=== PATIENT | female | born 1945 | race American Indian/Alaskan Native ===

== ENCOUNTER 2022-04-17 14:21 | Inpatient (IN) | payer MEDICARE ==
--- NOTE | 2022-04-17 15:37 | Emergency Department Report ---
HPI - General Chief Complaint: Dyspnea/Respdistress Time Seen by Provider: 04/17/22 15:18 - HPI HPI: Room 23 The patient is a 76-year-old female present with a chief complaint of respiratory distress. The patient was brought in from [facility] after she was found today with increased work of breathing and decreased SPO2. Per halfway staff patient has a trach and had noisy respirations and is found to be satting between 88-90% trach collar with increased work of breathing. Nursing states the patient sat is 90 to 92% with supplemental O2 via trach collar. There is been no reported fever or cough. The patient was tested for COVID at the halfway today just prior to EMS arrival and was negative. The patient has a history of end-stage renal disease and per the halfway was last dialyzed yesterday ED Past Medical Hx - Past Medical History Previous Medical History?: Yes Hx Diabetes: Yes (type 2) Hx Renal Disease: Yes (ESRD, HD q. MWF Dr Marin) Hx Dementia: Yes Additional medical history: resp failure - Surgical History Additional Surgical History: Tracheostomy, right chest Vas-Cath - Family History Family history: no significant - Social History Smoking Status: Unknown if ever smoked Substance Use Type: None ED Review of Systems ROS: Stated complaint: CLOGGED TRACHEA Other details as noted in HPI Comment: Unobtainable due to pts medical conditions (Dementia) Physical Exam - Physical Exam Vital Signs: Vital Signs 04/17/22 15:12 Pulse Rate 110 H Respiratory 22 Rate Blood Pressure 150/70 [Left] O2 Sat by Pulse 92 Oximetry Physical Exam: GENERAL: The patient is well-developed well-nourished female lying on stretcher occasionally exhibiting noisy respirations from tracheostomy site. [] HEENT: Normocephalic. Atraumatic. Extraocular motions are intact. Patient has moist mucous membranes. NECK: Supple. Tracheostomy in place. Occasional noisy respirations CHEST/LUNGS: Transmitted breath sounds from trach HEART/CARDIOVASCULAR: Regular. There is no tachycardia. There is no gallop rub or murmur. ABDOMEN: Abdomen is soft, nontender. Patient has normal bowel sounds. There is no abdominal distention. SKIN: There is no rash. There is no edema. There is no diaphoresis. NEURO: The patient is is asleep but awakens to light touch MUSCULOSKELETAL: There is no evidence of acute injury. ED Course Vital Signs 04/17/22 15:12 Pulse Rate 110 H Respiratory 22 Rate Blood Pressure 150/70 [Left] O2 Sat by Pulse 92 Oximetry ED Medical Decision Making - Lab Data Result diagrams: 04/17/22 16:08 04/17/22 16:08 Laboratory Tests 04/17/22 04/17/22 04/17/22 16:08 16:08 16:08 WBC 10.1 RBC 2.60 L Hgb 8.6 L Hct 25.4 L MCV 98 H MCH 33 H MCHC 34 RDW 15.9 H Plt Count 205 Lymph % (Auto) 8.0 L [place] % (Auto) 7.3 Eos % (Auto) 0.1 Baso % (Auto) 0.1 Lymph # (Auto) 0.8 L [place] # (Auto) 0.7 Eos # (Auto) 0.0 Baso # (Auto) 0.0 Seg Neutrophils % 84.5 H Seg Neutrophils # 8.5 H Sodium 126 L Potassium 3.5 L Chloride 88.8 L Carbon Dioxide 27 Anion Gap 14 BUN 41 H Creatinine 2.2 H Estimated GFR 22 BUN/Creatinine Ratio 19 Glucose 160 H Lactic Acid 2.20 H* Calcium 10.4 H - Radiology Data Radiology results: report reviewed (Chest x-ray), image reviewed (Chest x-ray) interpreted by me: Chest x-ray-right lung haziness/opacities likely pneumonia. No pneumothorax. [facility] [address] [place] [address] XRay Report Signed Patient: HUSSAIN POLANOC MR#: [id number] 210 : 1945 Acct:[id number] Age/Sex: 76 / F ADM Date: 04/17/22 Loc: ED Attending Dr: Ordering Physician: HARITHA MARIE MD Date of Service: 04/17/22 Procedure(s): XR chest 1V ap Accession Number(s): [id number] cc: HARITHA MARIE MD Fluoro Time In Minutes: CHEST 1 VIEW 04/17/2022 3:04 PM INDICATION / CLINICAL INFORMATION: Noisy respirations, trach care. COMPARISON: None available. FINDINGS: The study is limited by portable technique and patient contraction. SUPPORT DEVICES: There is expected positioning of a tracheostomy tube and right internal jugular vein permcath. HEART / MEDIASTINUM: Normal size of the cardiac silhouette with severe aortic atherosclerosis. LUNGS / PLEURA: There are generalized right airspace opacities. Mild left basilar opacities are also noted. The left lung is otherwise clear. No significant pleural effusion. No pneumothorax. ADDITIONAL FINDINGS: No significant additional findings. IMPRESSION: Suspected right pneumonia with questionable left basilar atelectasis versus pneumonia. Signer Name: Rodrigo Stark MD Signed: 04/17/2022 4:21 PM Workstation Name: [id number] Transcribed By: MN Dictated By: Rodrigo Stark MD Electronically Authenticated By: Rodrigo Stark MD Signed Date/Time: 04/17/22 162 DD/ 1619 TD/TT: - Differential Diagnosis Bronchitis, tracheitis, trach care, pneumonia Critical care attestation.: If time is entered above; I have spent that time in minutes in the direct care of this critically ill patient, excluding procedure time. ED Disposition Clinical Impression: Pneumonia, Hyponatremia Disposition: ADMITTED INPATIENT Is pt being admited?: Yes Does the pt Need Aspirin: No Condition: Fair Instructions: Bacterial Pneumonia (ED) Time of Disposition: 17:19 (Care transferred to hospitalist (Dr. Proctor))
--- NOTE | 2022-04-17 16:25 | XRay Report ---
CHEST 1 VIEW 04/17/2022 3:04 PM INDICATION / CLINICAL INFORMATION: Noisy respirations, trach care. COMPARISON: None available. FINDINGS: The study is limited by portable technique and patient contraction. SUPPORT DEVICES: There is expected positioning of a tracheostomy tube and right internal jugular vein permcath. HEART / MEDIASTINUM: Normal size of the cardiac silhouette with severe aortic atherosclerosis. LUNGS / PLEURA: There are generalized right airspace opacities. Mild left basilar opacities are also noted. The left lung is otherwise clear. No significant pleural effusion. No pneumothorax. ADDITIONAL FINDINGS: No significant additional findings. IMPRESSION: Suspected right pneumonia with questionable left basilar atelectasis versus pneumonia. Signer Name: Rodrigo Stark MD Signed: 04/17/2022 4:21 PM Workstation Name: [id number]
[2022-04-17 16:43] LABS: Basophils % (Auto) 0.1 % (0.0-1.8); Eosinophils % (Auto) 0.1 % (0.0-4.3); Hematocrit 25.4 % (30.3-42.9); Hemoglobin 8.6 gm/dl (10.1-14.3); Lymphocytes # (Auto) 0.8 K/mm3 (1.2-5.4); Mean Corpuscular HGB Conc 34 % (30-34); Mean Corpuscular Volume 98 fl (79-97); Monocytes # (Auto) 0.7 K/mm3 (0.0-0.8); Monocytes % (Auto) 7.3 % (0.0-7.3); Platelet Count 205 K/mm3 (140-440); Red Cell Distribution Width 15.9 % (13.2-15.2)
[2022-04-17 16:53] LABS: Calcium 10.4 mg/dL (8.4-10.2)
[2022-04-17] MEDS ORDERED: VANCOMYCIN/NS 1 GM/250 ML 1 GM/250 ML BAG IV ONE (16:55)
[2022-04-17] MEDS ORDERED: CEFEPIME/NS 2 GM/100 ML 2 GM/100 ML BAG IV ONE (16:55)
[2022-04-17] MEDS ORDERED: ONDANSETRON 4 MG/2 ML INJ IV PRN ×2 (17:20→17:56)
[2022-04-17] MEDS ORDERED: ACETAMINOPHEN 325 MG TAB PO PRN ×2 (17:20→17:56)
[2022-04-17] MEDS ORDERED: MORPHINE 2 MG/1 ML INJ IV PRN (17:20)
--- NOTE | 2022-04-17 17:55 | History and Physical Report ---
History of Present Illness Date of examination: 04/17/22 Date of admission: 04/17/2022 Chief complaint: Increasing shortness of breath since a.m. History of present illness: The patient is a 76-year-old female present with a chief complaint of respiratory distress. The patient was brought in from [facility] after she was found today with increased work of breathing and decreased SPO2. Per care home staff patient has a trach and had noisy respirations and is found to be satting between 88-90% trach collar with increased work of breathing. Nursing states the patient sat is 90 to 92% with supplemental O2 via trach collar. There is been no reported fever or cough. The patient was tested for COVID at the care home today just prior to EMS arrival and was negative. The patient has a history of end-stage renal disease and per the care home was last dialyzed yesterday - Past Medical History Previous Medical History?: Yes Hx Diabetes: Yes (type 2) Hx Renal Disease: Yes (ESRD, HD q. MWF Dr Marin) Hx Dementia: Yes Additional medical history: resp failure - Surgical History Additional Surgical History: Tracheostomy, right chest Vas-Cath - Family History Family history: no significant - Social History Smoking Status: Unknown if ever smoked Substance Use Type: None Review of Systems ROS: Stated complaint: CLOGGED TRACHEA Other details as noted in HPI Comment: Unobtainable due to pts medical conditions (Dementia) Medications and Allergies Allergies Allergy/AdvReac Type Severity Reaction Status Date / Time No Known Allergies Allergy Verified 04/17/22 15:15 Active Meds: Active Medications Acetaminophen (Acetaminophen 325 Mg Tab) 650 mg PO Q4H PRN PRN Reason: Pain MILD(1-3)/Fever >100.5/CARRANZA Vancomycin HCl (Vancomycin/Ns 1 Gm/250 Ml) 1 gm in 250 mls @ 167.007 mls/hr IV ONCE ONE; Protocol Stop: 04/17/22 18:24 Morphine Sulfate (Morphine 2 Mg/1 Ml Inj) 2 mg IV Q4H PRN PRN Reason: Pain, Moderate (4-6) Ondansetron HCl (Ondansetron 4 Mg/2 Ml Inj) 4 mg IV Q8H PRN PRN Reason: Nausea And Vomiting Sodium Chloride (Sodium Chloride 0.9% 10 Ml Flush Syringe) 10 ml IV BID SHAYY Sodium Chloride (Sodium Chloride 0.9% 10 Ml Flush Syringe) 10 ml IV PRN PRN PRN Reason: LINE FLUSH Exam - Constitutional Vitals: Temp Pulse Resp BP Pulse Ox 98.9 F 65 35 H 150/68 96 04/17/22 15:58 04/17/22 15:58 04/17/22 15:58 04/17/22 15:58 04/17/22 17:11 General appearance: Present: mild distress, well-nourished - EENT Eyes: Present: PERRL ENT: hearing intact, clear oral mucosa - Neck Neck: Present: supple, normal ROM - Respiratory Respiratory effort: normal Respiratory: bilateral: diminished, rhonchi - Cardiovascular Heart rate: 98 Rhythm: regular Heart Sounds: Present: S1 & S2. Absent: rub, click - Extremities Extremities: pulses symmetrical, No edema Peripheral Pulses: within normal limits - Abdominal General gastrointestinal: Present: soft, non-tender, non-distended, normal bowel sounds Female genitourinary: Present: normal - Integumentary Integumentary: Present: clear, warm, dry - Musculoskeletal Musculoskeletal: gait normal, strength equal bilaterally - Psychiatric Psychiatric: appropriate mood/affect, intact judgment & insight - Neurologic Neurologic: CNII-XII intact, moves all extremities HEART Score - HEART Score Age: > 65 Risk factors: > 3 risk factors or hx of atherosclerotic disease Troponin: 1-3x normal limit - Critical Actions Critical Actions: 4-6 pts:12-16.6% risk of adverse cardiac event. Should be admitted Results - Labs CBC & Chem 7: 04/17/22 16:08 04/17/22 16:08 Labs: Laboratory Last Values WBC 10.1 K/mm3 (4.5-11.0) 04/17/22 16:08 RBC 2.60 M/mm3 (3.65-5.03) L 04/17/22 16:08 Hgb 8.6 gm/dl (10.1-14.3) L 04/17/22 16:08 Hct 25.4 % (30.3-42.9) L 04/17/22 16:08 MCV 98 fl (79-97) H 04/17/22 16:08 MCH 33 pg (28-32) H 04/17/22 16:08 MCHC 34 % (30-34) 04/17/22 16:08 RDW 15.9 % (13.2-15.2) H 04/17/22 16:08 Plt Count 205 K/mm3 (140-440) 04/17/22 16:08 Lymph % (Auto) 8.0 % (13.4-35.0) L 04/17/22 16:08 [place] % (Auto) 7.3 % (0.0-7.3) 04/17/22 16:08 Eos % (Auto) 0.1 % (0.0-4.3) 04/17/22 16:08 Baso % (Auto) 0.1 % (0.0-1.8) 04/17/22 16:08 Lymph # (Auto) 0.8 K/mm3 (1.2-5.4) L 04/17/22 16:08 [place] # (Auto) 0.7 K/mm3 (0.0-0.8) 04/17/22 16:08 Eos # (Auto) 0.0 K/mm3 (0.0-0.4) 04/17/22 16:08 Baso # (Auto) 0.0 K/mm3 (0.0-0.1) 04/17/22 16:08 Seg Neutrophils % 84.5 % (40.0-70.0) H 04/17/22 16:08 Seg Neutrophils # 8.5 K/mm3 (1.8-7.7) H 04/17/22 16:08 Sodium 126 mmol/L (137-145) L 04/17/22 16:08 Potassium 3.5 mmol/L (3.6-5.0) L 04/17/22 16:08 Chloride 88.8 mmol/L (98-107) L 04/17/22 16:08 Carbon Dioxide 27 mmol/L (22-30) 04/17/22 16:08 Anion Gap 14 mmol/L 04/17/22 16:08 BUN 41 mg/dL (7-17) H 04/17/22 16:08 Creatinine 2.2 mg/dL (0.6-1.2) H 04/17/22 16:08 Estimated GFR 22 ml/min 04/17/22 16:08 BUN/Creatinine Ratio 19 % 04/17/22 16:08 Glucose 160 mg/dL (65-100) H 04/17/22 16:08 Lactic Acid 2.20 mmol/L (0.7-2.0) H* 04/17/22 16:08 Calcium 10.4 mg/dL (8.4-10.2) H 04/17/22 16:08 Short CBC 04/17/22 Range/Units 16:08 WBC 10.1 (4.5-11.0) K/mm3 Hgb 8.6 L (10.1-14.3) gm/dl Hct 25.4 L (30.3-42.9) % Plt Count 205 (140-440) K/mm3 BMP 04/17/22 16:08 Sodium 126 L Potassium 3.5 L Chloride 88.8 L Carbon Dioxide 27 BUN 41 H Creatinine 2.2 H Glucose 160 H Calcium 10.4 H - Imaging and Cardiology EKG: report reviewed Chest x-ray: report reviewed Imaging and Cardiology: Chest x-ray Suspected right pneumonia with questionable left basilar atelectasis versus pneumonia Assessment and Plan Advance Directives: Yes (Full code) VTE prophylaxis?: Chemical Plan of care discussed with patient/family: Yes - Patient Problems (1) Acute respiratory failure with hypoxia Current Visit: Yes Status: Acute Plan to address problem: Patient was hypoxic at the time of admission Oxygen supplementation as necessary BiPAP as necessary Intubation if necessary (2) Right lower lobe pneumonia Current Visit: Yes Status: Acute Qualifiers: Pneumonia type: due to unspecified organism Qualified Code(s): J18.9 - Pneumonia, unspecified organism Plan to address problem: Cultures are pending Possible aspiration IV Zithromax and IV ceftriaxone (3) Hyponatremia Current Visit: Yes Status: Acute Plan to address problem: Dilutional (4) Volume overload Current Visit: Yes Status: Chronic Plan to address problem: Needs emergent hemodialysis Nephrology consulted (5) Hypertension Current Visit: Yes Status: Chronic Qualifiers: Hypertension type: primary hypertension Qualified Code(s): I10 - Essential (primary) hypertension Plan to address problem: Continue antihypertensives and adjust medications (6) End stage renal disease on dialysis Current Visit: Yes Status: Chronic Plan to address problem: Nephrology consulted (7) T2DM (type 2 diabetes mellitus) Current Visit: Yes Status: Chronic Qualifiers: Diabetes mellitus termite treater helper insulin use: unspecified termite treater helper insulin use status Plan to address problem: Coverage for now Check hemoglobin A1c (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 Patient is full code. Patient acknowledges understanding with care plan. +30 minutes.
[2022-04-17] MEDS ORDERED: oxyCODONE /ACETAMINOPHEN 5-325MG TAB PO PRN (17:56)
[2022-04-17] MEDS ORDERED: IPRATROPIUM/ALBUTEROL SULFATE 3 ML AMPUL.NEB IH PRN (18:01)
[2022-04-17] MEDS: cefTRIAXone/NS 1 GM/50 ML 1 GM/50 ML BAG IV SCH (19:38)
[2022-04-17] MEDS: AZITHROMYCIN/NS 500 MG/250 ML 500 MG/250 ML BAG IV SCH (20:06)
[2022-04-17] MEDS ORDERED: FAMOTIDINE 20 MG/2 ML INJ IV SCH (22:00)
[2022-04-18] MEDS: methylPREDNISolone Sod Succinate 125 MG/2 ML INJ IV SCH ×4 (02:09→21:57)
[2022-04-18] MEDS: IPRATROPIUM/ALBUTEROL SULFATE 3 ML AMPUL.NEB IH SCH ×5 (07:49→20:12)
[2022-04-18] MEDS: INSULIN LISPRO 100 UNIT/ML SUB-Q SCH ×4 (07:50→23:37)
--- NOTE | 2022-04-18 11:57 | Consultation ---
History of Present Illness - Reason for Consult Consult date: 04/18/22 end stage renal disease - History of Present Illness The patient is a 76 YO female known to our service with history notable for DM, HTN, Anemia, CVA, Resp failure s/p Tracheostomy and ESRD on HD(MWF) who presented from [place] with respiratory distress and decreased SPO2. Per alf staff patient has a trach and had noisy respirations and is found to be satting between 88-90% trach collar with increased work of breathing. Nursing states the patient sat is 90 to 92% with supplemental O2 via trach collar. There is been no reported fever or cough. The patient was tested for COVID at the alf today just prior to EMS arrival and was negative. Patient unable to provide any history and there was no family member at the bedside. Labs and imaging noted. Nephrology consulted for ESRD management. Past History Past Medical History: other (See HPI.) Medications and Allergies Allergies Allergy/AdvReac Type Severity Reaction Status Date / Time No Known Allergies Allergy Verified 04/17/22 15:15 Home Medications Medication Instructions Recorded Confirmed Last Taken Type Losartan [Cozaar] 50 mg PO QDAY #30 tablet 04/21/22 Unknown Rx carvediloL [Coreg] 6.25 mg FEEDTUBE BID #60 tablet 04/21/22 Unknown Rx Active Meds: Active Medications Acetaminophen (Acetaminophen 325 Mg Tab) 650 mg PO Q4H PRN PRN Reason: Pain MILD(1-3)/Fever >100.5/CARRANZA Albuterol/Ipratropium (Ipratropium/Albuterol Sulfate 3 Ml Ampul.Neb) 1 ampul IH QIDRT [facility] Last Admin: 04/18/22 08:39 Dose: 1 ampul Famotidine (Famotidine 10 Mg Tab) 10 mg PO BIDAC SHAYY Azithromycin (Zithromax/Ns) 500 mg in 250 mls @ 250 mls/hr IV Q24H [facility] Last Admin: 04/17/22 20:06 Dose: 250 mls/hr Ceftriaxone Sodium (Rocephin/Ns 1 Gm/50 Ml) 1 gm in 50 mls @ 100 mls/hr IV Q24H SHAYY; Protocol Last Admin: 04/17/22 19:38 Dose: 100 mls/hr Insulin Human Lispro (Insulin Lispro 100 Unit/Ml) 0 unit SUB-Q ACHS [facility]; Protocol Methylprednisolone Sodium Succinate (Methylprednisolone Sod Succinate 125 Mg/2 Ml Inj) 60 mg IV Q8HR [facility] Last Admin: 04/18/22 02:09 Dose: Not Given Morphine Sulfate (Morphine 2 Mg/1 Ml Inj) 2 mg IV Q4H PRN PRN Reason: Pain, Moderate (4-6) Ondansetron HCl (Ondansetron 4 Mg/2 Ml Inj) 4 mg IV Q8H PRN PRN Reason: Nausea And Vomiting Oxycodone/Acetaminophen (Oxycodone /Acetaminophen 5-325mg Tab) 1 tab PO Q6H PRN PRN Reason: Pain, Moderate (4-6) Sodium Chloride (Sodium Chloride 0.9% 10 Ml Flush Syringe) 10 ml IV BID [facility] Last Admin: 04/17/22 22:42 Dose: 10 ml Sodium Chloride (Sodium Chloride 0.9% 10 Ml Flush Syringe) 10 ml IV PRN PRN PRN Reason: LINE FLUSH Review of Systems ROS unobtainable: due to mental status Exam - Vital Signs Vital signs: Vital Signs Pulse Resp BP Pulse Ox 110 H 22 150/70 92 04/17/22 15:12 04/17/22 15:12 04/17/22 15:12 04/17/22 15:12 Results - Lab Results 04/19/22 05:37 04/20/22 06:40 Most recent lab results Calcium 10.4 mg/dL (8.4-10.2) H 04/17/22 16:08 Assessment and Plan 1. ESRD: Patient is on maintenance hemodialysis, MWF schedule. Hemodialysis: today. 2. FEN: Hyponatremia, HD today, monitor. UF with HD as tolerated. Monitor lytes and volume status. 3. Acute on chronic hypoxic respiratory failure, improved: Etiology: Right lower lobe pneumonia. Tracheostomy dependence. Baseline oxygen requirements: Room air (T-piece). Abx per primary. 4. Right lower lobe pneumonia: Chest x-ray findings. Abx. Covid negative. Monitor. 5. Hypertension: Continue to monitor. 6. Insulin dependent type II diabetes mellitus: SSI. 7. Moderate protein caloric malnutrition. 8. Normochromic anemia, POA: Chronic. Likely 2/2 ESRD. Epogen with HD. Subjective: Patient was seen and examined at the bedside. Examination: General appearance: well-developed, appears stated age, no distress, Trached on T-piece HEENT: atraumatic, no icterus Neck: trached Respiratory: ctab, diminished breath sounds Heart: S1S2, no murmur Abdomen: soft, bowel sounds heard, NT, PEG noted Integumentary: no obvious rash Neurologic: lethargic, non-verbal, not following any command Ext: no edema MSK: multiple contractures Hemodialysis access: R IJ tunnel catheter
[2022-04-18] MEDS ORDERED: EPOETIN ALFA-EPBX 20,000 UNIT/1 ML VIAL SUB-Q PRN (12:09)
[2022-04-18] MEDS: FAMOTIDINE 10 MG TAB PO SCH ×2 (12:09→17:59)
[2022-04-18] MEDS ORDERED: SODIUM CHLORIDE 0.9% 100 ML IV PRN ×2 (12:09→16:00)
[2022-04-18 14:17] LABS: Albumin 2.7 g/dL (3.9-5); BUN/Creatinine Ratio 15; Blood Urea Nitrogen 42 mg/dL (7-17); Calcium 9.5 mg/dL (8.4-10.2); Hemolysis Index 0
[2022-04-18 14:27] LABS: Alanine Aminotransferase < 5 units/L (7-56)
[2022-04-18 14:32] LABS: Hepatitis B Surface Antigen Non-Reactive (Negative); Hepatitis C Virus Antibody Non-Reactive (NonReactive)
[2022-04-18] MEDS ORDERED: EPOETIN ALFA-EPBX 10,000 UNIT/1 ML VIAL IV PRN (15:00)
[2022-04-18] MEDS: EPOETIN ALFA-EPBX 10,000 UNIT/1 ML VIAL SUB-Q PRN (15:47)
[2022-04-18] MEDS: cefTRIAXone/NS 1 GM/50 ML 1 GM/50 ML BAG IV SCH (18:00)
[2022-04-18] MEDS: AZITHROMYCIN/NS 500 MG/250 ML 500 MG/250 ML BAG IV SCH (18:00)
--- NOTE | 2022-04-18 19:39 | Progress Note ---
Assessment and Plan Assessment and plan: #Acute on chronic hypoxic respiratory failureimproved #Tracheostomy dependence - etiology: Right lower lobe pneumonia - baseline oxygen requirements: Room air (T-piece) - supplemental oxygen: 5 L nasal - Continue protocol: continue pulse oximetry, wean oxygen as tolerated, ordered incentive spirometry and educated patient on how to use it and its importance. Continue IV azithromycin 500 mg daily and IV Rocephin 1 g every 24 hours for total of 5 days (completes on 04/21/2022) - continue to monitor #Right lower lobe pneumonia secondary to gram-negative rods or atypical organisms Visualized on chest x-ray Continue IV azithromycin 500 mg daily and Rocephin 1 g every 24 hours Unremarkable coronavirus PCR. Continue to monitor #Hyponatremia Monitor with repeat BMP as the patient was initially volume overloaded and she is now underwent hemodialysis. #ESRD on dialysis #Volume overload -Access: Permacath in right upper chest -Outpatient schedule: Thursday -HD center: Unknown -Nephrology consulted; appreciate recs. -Renally dose medications and avoid nephrotoxic drugs. Renal diet. #Hypertension - home medications: Unknown - current medications: Currently normotensive - SBP goal <160 and DBP goal <90 while inpatient - continue to monitor #Insulin dependent type II diabetes mellitus - hemoglobin A1c: Unknown - home regimen: Unknown - current regimen: Moderate SSI - blood glucose goal 140-180 while inpatient - continue to monitor #Moderate protein caloric malnutrition Albumin 2.7 Holding on initiating dietary supplementation #Advanced care planning -Disease education conducted, care plan discussed, diagnoses discussed, prognosis discussed, and patient acknowledges understanding with care plan -Time: +30 min Disposition Plan: Continue medical management Total Time Spent with Patient (Minutes): 45 minutes History Interval history: No acute events overnight. Hospitalist Physical - Constitutional Vitals: Temp Pulse Resp BP Pulse Ox 98.0 F 69 18 168/71 98 04/18/22 16:30 04/18/22 16:30 04/18/22 16:30 04/18/22 16:30 04/18/22 18:00 General appearance: Present: no acute distress, well-nourished - EENT Eyes: Present: PERRL, EOM intact ENT: hearing intact, clear oral mucosa, dentition normal - Neck Neck: Present: supple, normal ROM, other (Trach collar in place) - Respiratory Respiratory effort: normal Respiratory: bilateral: diminished (On 5 L) - Cardiovascular Rhythm: regular Heart Sounds: Present: S1 & S2 - Extremities Extremities: no ischemia, pulses intact, pulses symmetrical, No edema, normal temperature, normal color Peripheral Pulses: within normal limits - Abdominal General gastrointestinal: soft, non-tender, non-distended, normal bowel sounds - Integumentary Integumentary: Present: clear, warm, dry - Psychiatric Psychiatric: appropriate mood/affect, memory intact, cooperative - Neurologic Neurologic: CNII-XII intact - Allied Health Allied health notes reviewed: nursing HEART Score - HEART Score Age: > 65 Risk factors: > 3 risk factors or hx of atherosclerotic disease Troponin: 1-3x normal limit - Critical Actions Critical Actions: 4-6 pts:12-16.6% risk of adverse cardiac event. Should be admitted Results - Labs CBC & Chem 7: 04/17/22 16:08 04/18/22 13:46 Labs: Laboratory Last Values WBC 10.1 K/mm3 (4.5-11.0) 04/17/22 16:08 RBC 2.60 M/mm3 (3.65-5.03) L 04/17/22 16:08 Hgb 8.6 gm/dl (10.1-14.3) L 04/17/22 16:08 Hct 25.4 % (30.3-42.9) L 04/17/22 16:08 MCV 98 fl (79-97) H 04/17/22 16:08 MCH 33 pg (28-32) H 04/17/22 16:08 MCHC 34 % (30-34) 04/17/22 16:08 RDW 15.9 % (13.2-15.2) H 04/17/22 16:08 Plt Count 205 K/mm3 (140-440) 04/17/22 16:08 Lymph % (Auto) 8.0 % (13.4-35.0) L 04/17/22 16:08 [place] % (Auto) 7.3 % (0.0-7.3) 04/17/22 16:08 Eos % (Auto) 0.1 % (0.0-4.3) 04/17/22 16:08 Baso % (Auto) 0.1 % (0.0-1.8) 04/17/22 16:08 Lymph # (Auto) 0.8 K/mm3 (1.2-5.4) L 04/17/22 16:08 [place] # (Auto) 0.7 K/mm3 (0.0-0.8) 04/17/22 16:08 Eos # (Auto) 0.0 K/mm3 (0.0-0.4) 04/17/22 16:08 Baso # (Auto) 0.0 K/mm3 (0.0-0.1) 04/17/22 16:08 Seg Neutrophils % 84.5 % (40.0-70.0) H 04/17/22 16:08 Seg Neutrophils # 8.5 K/mm3 (1.8-7.7) H 04/17/22 16:08 Sodium 131 mmol/L (137-145) L 04/18/22 13:46 Potassium 3.3 mmol/L (3.6-5.0) L 04/18/22 13:46 Chloride 93.3 mmol/L (98-107) L 04/18/22 13:46 Carbon Dioxide 28 mmol/L (22-30) 04/18/22 13:46 Anion Gap 13 mmol/L 04/18/22 13:46 BUN 42 mg/dL (7-17) H 04/18/22 13:46 Creatinine 2.8 mg/dL (0.6-1.2) H 04/18/22 13:46 Estimated GFR 20 ml/min 04/18/22 13:46 BUN/Creatinine Ratio 15 % 04/18/22 13:46 Glucose 88 mg/dL (65-100) 04/18/22 13:46 POC Glucose 91 mg/dL (70-105) 04/18/22 11:48 Lactic Acid 2.20 mmol/L (0.7-2.0) H* 04/17/22 16:08 Calcium 9.5 mg/dL (8.4-10.2) 04/18/22 13:46 Total Bilirubin 0.30 mg/dL (0.1-1.2) 04/18/22 13:46 AST 13 units/L (5-40) 04/18/22 13:46 ALT < 5 units/L (7-56) L 04/18/22 13:46 Alkaline Phosphatase 125 units/L (35-129) 04/18/22 13:46 Total Protein 5.5 g/dL (6.3-8.2) L 04/18/22 13:46 Albumin 2.7 g/dL (3.9-5) L 04/18/22 13:46 Albumin/Globulin Ratio 1.0 % 04/18/22 13:46 Coronavirus (PCR) Negative (Negative) 04/17/22 16:20 Hepatitis A IgM Ab Non-reactive (NonReactive) 04/18/22 13:46 Hep Bs Antigen Non-reactive (Negative) 04/18/22 13:46 Hep B Core IgM Ab Non-reactive (NonReactive) 04/18/22 13:46 Hepatitis C Antibody Non-reactive (NonReactive) 04/18/22 13:46 Microbiology: Microbiology 04/17/22 16:08 Peripheral/Venous Blood Culture - Preliminary Culture in Progress Bonilla/IV: Voiding Method Incontinent Active Medications - Current Medications Current Medications: Generic Name Dose Route Start Last Admin Trade Name Freq PRN Reason Stop Dose Admin Acetaminophen 650 mg 04/17/22 17:56 Acetaminophen 325 Mg Tab PO Q4H PRN Pain MILD(1-3)/Fever >100.5/CARRANZA Albuterol/Ipratropium 1 ampul 04/17/22 20:00 04/18/22 17:00 Ipratropium/Albuterol Sulfate 3 Ml Ampul.Neb IH Not Given QIDRT SHAYY Epoetin Dawrin-epbx 20,000 unit 04/18/22 15:00 04/18/22 15:47 Epoetin Darwin-Epbx 10,000 Unit/1 Ml Vial SUB-Q 20,000 unit RAFFAELE PRN Administration dialysis Famotidine 10 mg 04/18/22 08:30 04/18/22 17:59 Famotidine 10 Mg Tab PO 10 mg BIDAC SHAYY Administration Azithromycin 500 mg in 250 mls @ 250 mls/hr 04/17/22 19:00 04/18/22 18:00 Zithromax/Ns IV 250 mls/hr Q24H SHAYY Administration Ceftriaxone Sodium 1 gm in 50 mls @ 100 mls/hr 04/17/22 19:00 04/18/22 18:00 Rocephin/Ns 1 Gm/50 Ml IV 100 mls/hr Q24H SHAYY Administration Protocol Sodium Chloride 100 mls @ 999 mls/hr 04/18/22 16:00 Nacl 0.9% IV RAFFAELE PRN Hypotension Insulin Human Lispro 0 unit 04/18/22 07:30 04/18/22 16:55 Insulin Lispro 100 Unit/Ml SUB-Q Not Given ACHS [facility] Protocol Methylprednisolone Sodium Succinate 60 mg 04/17/22 22:00 04/18/22 17:59 Methylprednisolone Sod Succinate 125 Mg/2 Ml Inj IV 60 mg Q8HR SHAYY Administration Morphine Sulfate 2 mg 04/17/22 17:20 Morphine 2 Mg/1 Ml Inj IV Q4H PRN Pain, Moderate (4-6) Ondansetron HCl 4 mg 04/17/22 17:56 Ondansetron 4 Mg/2 Ml Inj IV Q8H PRN Nausea And Vomiting Oxycodone/Acetaminophen 1 tab 04/17/22 17:56 Oxycodone /Acetaminophen 5-325mg Tab PO Q6H PRN Pain, Moderate (4-6) Sodium Chloride 10 ml 04/17/22 22:00 04/18/22 12:12 Sodium Chloride 0.9% 10 Ml Flush Syringe IV 10 ml BID SHAYY Administration Sodium Chloride 10 ml 04/17/22 17:56 Sodium Chloride 0.9% 10 Ml Flush Syringe IV PRN PRN LINE FLUSH Nutrition/Malnutrition Assess - Dietary Evaluation Nutrition/Malnutrition Findings: Nutrition Notes Start: 04/18/22 12:09 Freq: Status: Active Protocol: Document 04/18/22 12:15 [facility] (Rec: 04/18/22 12:25 [facility] [id number]) Nutrition Notes Need for Assessment generated from: cogeneration operator,MST Initial or Follow up Assessment Current Diagnosis CKD (stage V CKD),Diabetes, Hypertension,Respiratory Failure Other Pertinent Diagnosis RLL pneu, volume overload, dementia Current Diet No diet ordered Labs/Tests Reviewed Pertinent Medications Solumedrol Height 5 ft 3 in Weight 59 kg [place] Body Weight (kg) 52.27 BMI 23.0 Weight Status Appropriate Subjective/Other Information RD consulted for TF. Pt also screened for malnutrition risk (unsure of recent wt changes) , chewing difficulty and hx of receiving NTR support. Pt is from a [place] and has a trach collar. Burn Absent Trauma Absent Difficulty In Swallowing Skin Integrity/Comment Sacral pressure ulcer #1 Nutrition Diagnosis Inadequate oral intake Etiology resp failure As Evidenced by Signs and Symptoms pt NPO Is patient on ventilator? No Is Patient Ambulatory and/or Out of Bed No REE-([facility]-confined to bed) [phone] Calculation Used for Recommendations [facility] Additional Notes Pro needs >1.2g/kg: >71g/day Fluid needs 1-1.5L/day Nutrition Intervention Nutrition Support: Nepro at 30ml/hr with 130ml water flush q4h. Kcal 1,296 Protein (gm) 58 Carbohydrates (gm) 116 Fat (gm) 69 Fluid (mL) 523 Fiber (gm) 9 Goal #1 TF tolerance Goal #2 TF to provide at least 75% energy and pro needs Anticipated Discharge Needs: Continue EN support Follow-Up By: 04/21/22 Additional Comments F/U: new TF, MST assessment, COVID-19 test results
[2022-04-18] MEDS ORDERED: DEXTROSE 5% IN WATER 1,000 ML IV SCH (20:00)
[2022-04-18] MEDS: POTASSIUM CHLORIDE 10 MEQ 10 MEQ/100 ML BAG IV SCH ×3 (21:58→22:01)
[2022-04-19 00:19] LABS: Basophils % (Auto) 0.3 % (0.0-1.8); Eosinophils % (Auto) 0.2 % (0.0-4.3); Hematocrit 25.4 % (30.3-42.9); Hemoglobin 8.8 gm/dl (10.1-14.3); Lymphocytes # (Auto) 0.4 K/mm3 (1.2-5.4); Lymphocytes % (Auto) 5.1 % (13.4-35.0); Mean Corpuscular HGB Conc 35 % (30-34); Mean Corpuscular Volume 95 fl (79-97); Monocytes # (Auto) 0.4 K/mm3 (0.0-0.8); Monocytes % (Auto) 5.4 % (0.0-7.3); Platelet Count 220 K/mm3 (140-440); Red Blood Count 2.67 M/mm3 (3.65-5.03); Red Cell Distribution Width 14.8 % (13.2-15.2)
[2022-04-19 03:19] LABS: Calcium 9.5 mg/dL (8.4-10.2)
[2022-04-19] MEDS: methylPREDNISolone Sod Succinate 125 MG/2 ML INJ IV SCH ×3 (06:24→22:38)
[2022-04-19 06:56] LABS: Hematocrit 24.5 % (30.3-42.9); Hemoglobin 8.3 gm/dl (10.1-14.3); Mean Corpuscular HGB Conc 34 % (30-34); Mean Corpuscular Volume 96 fl (79-97); Red Blood Count 2.56 M/mm3 (3.65-5.03)
[2022-04-19] MEDS: FAMOTIDINE 10 MG TAB PO SCH ×2 (07:30→16:40)
[2022-04-19] MEDS: INSULIN LISPRO 100 UNIT/ML SUB-Q SCH ×4 (07:30→23:40)
[2022-04-19 07:45] LABS: Basophils % (Manual) 0 % (0.0-1.8); Eosinophils % (Manual) 0 % (0.0-4.3); Platelet Estimate Consistent w Auto; RBC Morphology Normal; Total Cells Counted 100
[2022-04-19 08:04] LABS: Platelet Count 203 K/mm3 (140-440)
[2022-04-19] MEDS: IPRATROPIUM/ALBUTEROL SULFATE 3 ML AMPUL.NEB IH SCH ×4 (08:25→22:18)
[2022-04-19] MEDS: POTASSIUM CHLORIDE 10 MEQ 10 MEQ/100 ML BAG IV SCH ×4 (09:29→12:58)
[2022-04-19] MEDS: carvediloL 6.25 MG TAB FEEDTUBE SCH ×2 (09:30→22:39)
[2022-04-19] MEDS: AZITHROMYCIN 250 MG TAB FEEDTUBE SCH (09:30)
--- NOTE | 2022-04-19 12:59 | Progress Note ---
Assessment and Plan Assessment and plan: #Acute on chronic hypoxic respiratory failureimproved #Tracheostomy dependence - etiology: Right lower lobe pneumonia - baseline oxygen requirements: Room air (T-piece) - supplemental oxygen: 2 L L nasal - Continue protocol: continue pulse oximetry, wean oxygen as tolerated, ordered incentive spirometry and educated patient on how to use it and its importance. Continue IV azithromycin 500 mg daily and IV Rocephin 1 g every 24 hours for total of 5 days (completes on 04/21/2022) - continue to monitor #Right lower lobe pneumonia secondary to gram-negative rods or atypical organisms Visualized on chest x-ray Continue IV azithromycin 500 mg daily and Rocephin 1 g every 24 hours Unremarkable coronavirus PCR. Continue to monitor #Hyponatremiaresolved Monitor with repeat BMP as the patient was initially volume overloaded and she is now underwent hemodialysis. #Hypokalemia Potassium 3.5 Repleting. Monitor with repeat BMP tomorrow. #ESRD on dialysis #Volume overload -Access: Permacath in right upper chest -Outpatient schedule: Thursday -HD center: Unknown -Nephrology consulted; appreciate recs. -Renally dose medications and avoid nephrotoxic drugs. Renal diet. #Hypertension - home medications: Unknown - current medications: Currently normotensive - SBP goal <160 and DBP goal <90 while inpatient - continue to monitor #Insulin dependent type II diabetes mellitus - hemoglobin A1c: Unknown - home regimen: Unknown - current regimen: Moderate SSI - blood glucose goal 140-180 while inpatient - continue to monitor #Moderate protein caloric malnutrition Albumin 2.7 Holding on initiating dietary supplementation #Advanced care planning -Disease education conducted, care plan discussed, diagnoses discussed, prognosis discussed, and patient acknowledges understanding with care plan -Time: +30 min Disposition Plan: Continue medical management Total Time Spent with Patient (Minutes): 45 minutes History Interval history: Patient has complaints of mild abdominal discomfort without nausea or vomiting. Hospitalist Physical - Constitutional Vitals: Temp Pulse Resp BP Pulse Ox 98.6 F 77 16 169/83 99 04/19/22 04:53 04/19/22 08:26 04/19/22 08:26 04/19/22 04:53 04/19/22 08:35 General appearance: Present: no acute distress, well-nourished - EENT Eyes: Present: PERRL, EOM intact ENT: hearing intact, clear oral mucosa, dentition normal - Neck Neck: Present: supple, normal ROM, other (Trach collar in place on 1 L ) - Respiratory Respiratory effort: normal Respiratory: bilateral: diminished (Trach collar on 1 L supplemental oxygen) - Cardiovascular Rhythm: regular Heart Sounds: Present: S1 & S2 - Extremities Extremities: no ischemia, pulses intact, pulses symmetrical, No edema, normal temperature, normal color Peripheral Pulses: within normal limits - Abdominal General gastrointestinal: soft, non-tender, non-distended, normal bowel sounds, other (PEG tube in place) - Integumentary Integumentary: Present: clear, warm, dry - Psychiatric Psychiatric: appropriate mood/affect, cooperative - Neurologic Neurologic: CNII-XII intact - Allied Health Allied health notes reviewed: nursing HEART Score - HEART Score Age: > 65 Risk factors: > 3 risk factors or hx of atherosclerotic disease Troponin: 1-3x normal limit - Critical Actions Critical Actions: 4-6 pts:12-16.6% risk of adverse cardiac event. Should be admitted Results - Labs CBC & Chem 7: 04/19/22 05:37 04/19/22 02:46 Labs: Laboratory Last Values WBC 11.3 K/mm3 (4.5-11.0) H 04/19/22 05:37 RBC 2.56 M/mm3 (3.65-5.03) L 04/19/22 05:37 Hgb 8.3 gm/dl (10.1-14.3) L 04/19/22 05:37 Hct 24.5 % (30.3-42.9) L 04/19/22 05:37 MCV 96 fl (79-97) 04/19/22 05:37 MCH 32 pg (28-32) 04/19/22 05:37 MCHC 34 % (30-34) 04/19/22 05:37 RDW 15.0 % (13.2-15.2) 04/19/22 05:37 Plt Count 203 K/mm3 (140-440) 04/19/22 05:37 Lymph % (Auto) 5.1 % (13.4-35.0) L 04/19/22 00:09 [place] % (Auto) 5.4 % (0.0-7.3) 04/19/22 00:09 Eos % (Auto) 0.2 % (0.0-4.3) 04/19/22 00:09 Baso % (Auto) 0.3 % (0.0-1.8) 04/19/22 00:09 Lymph # (Auto) 0.4 K/mm3 (1.2-5.4) L 04/19/22 00:09 [place] # (Auto) 0.4 K/mm3 (0.0-0.8) 04/19/22 00:09 Eos # (Auto) 0.0 K/mm3 (0.0-0.4) 04/19/22 00:09 Baso # (Auto) 0.0 K/mm3 (0.0-0.1) 04/19/22 00:09 Add Manual Diff Complete 04/19/22 05:37 Total Counted 100 04/19/22 05:37 Seg Neutrophils % 89.0 % (40.0-70.0) H 04/19/22 00:09 Seg Neuts % (Manual) 87.0 % (40.0-70.0) H 04/19/22 05:37 Band Neutrophils % 0 % 04/19/22 05:37 Lymphocytes % (Manual) 11.0 % (13.4-35.0) L 04/19/22 05:37 Reactive Lymphs % (Man) 0 % 04/19/22 05:37 Monocytes % (Manual) 2.0 % (0.0-7.3) 04/19/22 05:37 Eosinophils % (Manual) 0 % (0.0-4.3) 04/19/22 05:37 Basophils % (Manual) 0 % (0.0-1.8) 04/19/22 05:37 Metamyelocytes % 0 % 04/19/22 05:37 Myelocytes % 0 % 04/19/22 05:37 Promyelocytes % 0 % 04/19/22 05:37 Blast Cells % 0 % 04/19/22 05:37 Nucleated RBC % Not Reportable 04/19/22 05:37 Seg Neutrophils # 6.5 K/mm3 (1.8-7.7) 04/19/22 00:09 Seg Neutrophils # Man 0.0 K/mm3 (1.8-7.7) L 04/19/22 05:37 Band Neutrophils # 0.0 K/mm3 04/19/22 05:37 Lymphocytes # (Manual) 0.0 K/mm3 (1.2-5.4) L 04/19/22 05:37 Abs React Lymphs (Man) 0.0 K/mm3 04/19/22 05:37 Monocytes # (Manual) 0.0 K/mm3 (0.0-0.8) 04/19/22 05:37 Eosinophils # (Manual) 0.0 K/mm3 (0.0-0.4) 04/19/22 05:37 Basophils # (Manual) 0.0 K/mm3 (0.0-0.1) 04/19/22 05:37 Metamyelocytes # 0.0 K/mm3 04/19/22 05:37 Myelocytes # 0.0 K/mm3 04/19/22 05:37 Promyelocytes # 0.0 K/mm3 04/19/22 05:37 Blast Cells # 0.0 K/mm3 04/19/22 05:37 WBC Morphology Not Reportable 04/19/22 05:37 Hypersegmented Neuts Not Reportable 04/19/22 05:37 Hyposegmented Neuts Not Reportable 04/19/22 05:37 Hypogranular Neuts Not Reportable 04/19/22 05:37 Smudge Cells Not Reportable 04/19/22 05:37 Toxic Granulation Not Reportable 04/19/22 05:37 Toxic Vacuolation Not Reportable 04/19/22 05:37 Dohle Bodies Not Reportable 04/19/22 05:37 Pelger-Huet Anomaly Not Reportable 04/19/22 05:37 Arianne Rods Not Reportable 04/19/22 05:37 Platelet Estimate Consistent w auto 04/19/22 05:37 Clumped Platelets Not Reportable 04/19/22 05:37 Plt Clumps, EDTA Not Reportable 04/19/22 05:37 Large Platelets Not Reportable 04/19/22 05:37 Giant Platelets Not Reportable 04/19/22 05:37 Platelet Satelliting Not Reportable 04/19/22 05:37 Plt Morphology Comment Not Reportable 04/19/22 05:37 RBC Morphology Normal 04/19/22 05:37 Dimorphic RBCs Not Reportable 04/19/22 05:37 Polychromasia Not Reportable 04/19/22 05:37 Hypochromasia Not Reportable 04/19/22 05:37 Poikilocytosis Not Reportable 04/19/22 05:37 Anisocytosis Not Reportable 04/19/22 05:37 Microcytosis Not Reportable 04/19/22 05:37 Macrocytosis Not Reportable 04/19/22 05:37 Spherocytes Not Reportable 04/19/22 05:37 Pappenheimer Bodies Not Reportable 04/19/22 05:37 Sickle Cells Not Reportable 04/19/22 05:37 Target Cells Not Reportable 04/19/22 05:37 Tear Drop Cells Not Reportable 04/19/22 05:37 Ovalocytes Not Reportable 04/19/22 05:37 Helmet Cells Not Reportable 04/19/22 05:37 Husain-[place] Bodies Not Reportable 04/19/22 05:37 [place] Rings Not Reportable 04/19/22 05:37 [place] Cells Not Reportable 04/19/22 05:37 Bite Cells Not Reportable 04/19/22 05:37 Crenated Cell Not Reportable 04/19/22 05:37 Elliptocytes Not Reportable 04/19/22 05:37 Acanthocytes (Spur) Not Reportable 04/19/22 05:37 Rouleaux Not Reportable 04/19/22 05:37 Hemoglobin C Crystals Not Reportable 04/19/22 05:37 Schistocytes Not Reportable 04/19/22 05:37 Malaria parasites Not Reportable 04/19/22 05:37 Kuldeep Bodies Not Reportable 04/19/22 05:37 Hem Pathologist Commnt No 04/19/22 05:37 Sodium 137 mmol/L (137-145) 04/19/22 02:46 Potassium 3.5 mmol/L (3.6-5.0) L 04/19/22 02:46 Chloride 91.7 mmol/L (98-107) L 04/19/22 02:46 Carbon Dioxide 33 mmol/L (22-30) H 04/19/22 02:46 Anion Gap 16 mmol/L 04/19/22 02:46 BUN 21 mg/dL (7-17) H 04/19/22 02:46 Creatinine 1.9 mg/dL (0.6-1.2) H 04/19/22 02:46 Estimated GFR 31 ml/min 04/19/22 02:46 BUN/Creatinine Ratio 11 % 04/19/22 02:46 Glucose 85 mg/dL (65-100) 04/19/22 02:46 POC Glucose 195 mg/dL (70-105) H 04/19/22 07:32 Lactic Acid 1.00 mmol/L (0.7-2.0) 04/19/22 00:09 Calcium 9.5 mg/dL (8.4-10.2) 04/19/22 02:46 Total Bilirubin 0.30 mg/dL (0.1-1.2) 04/18/22 13:46 AST 13 units/L (5-40) 04/18/22 13:46 ALT < 5 units/L (7-56) L 04/18/22 13:46 Alkaline Phosphatase 125 units/L (35-129) 04/18/22 13:46 Total Protein 5.5 g/dL (6.3-8.2) L 04/18/22 13:46 Albumin 2.7 g/dL (3.9-5) L 04/18/22 13:46 Albumin/Globulin Ratio 1.0 % 04/18/22 13:46 Coronavirus (PCR) Negative (Negative) 04/17/22 16:20 Hepatitis A IgM Ab Non-reactive (NonReactive) 04/18/22 13:46 Hep Bs Antigen Non-reactive (Negative) 04/18/22 13:46 Hep B Core IgM Ab Non-reactive (NonReactive) 04/18/22 13:46 Hepatitis C Antibody Non-reactive (NonReactive) 04/18/22 13:46 Microbiology: Microbiology 04/17/22 16:08 Peripheral/Venous Blood Culture - Preliminary NO GROWTH AFTER 24 HOURS Bonilla/IV: Voiding Method Incontinent Active Medications - Current Medications Current Medications: Generic Name Dose Route Start Last Admin Trade Name Freq PRN Reason Stop Dose Admin Acetaminophen 650 mg 04/17/22 17:56 Acetaminophen 325 Mg Tab PO Q4H PRN Pain MILD(1-3)/Fever >100.5/CARRANZA Albuterol/Ipratropium 1 ampul 04/17/22 20:00 04/19/22 08:25 Ipratropium/Albuterol Sulfate 3 Ml Ampul.Neb IH 1 ampul QIDRT SHAYY Administration Azithromycin 500 mg 04/19/22 10:00 04/19/22 09:30 Azithromycin 250 Mg Tab FEEDTUBE 04/21/22 10:01 500 mg QDAY SHAYY Administration Protocol Carvedilol 6.25 mg 04/19/22 10:00 04/19/22 09:30 Carvedilol 6.25 Mg Tab FEEDTUBE 6.25 mg BID SHAYY Administration Epoetin Darwin-epbx 20,000 unit 04/18/22 15:00 04/18/22 15:47 Epoetin Darwin-Epbx 10,000 Unit/1 Ml Vial SUB-Q 20,000 unit RAFFAELE PRN Administration dialysis Famotidine 10 mg 04/18/22 08:30 04/19/22 07:30 Famotidine 10 Mg Tab PO 10 mg BIDAC SHAYY Administration Ceftriaxone Sodium 1 gm in 50 mls @ 100 mls/hr 04/17/22 19:00 04/18/22 18:00 Rocephin/Ns 1 Gm/50 Ml IV 100 mls/hr Q24H SHAYY Administration Protocol Sodium Chloride 100 mls @ 999 mls/hr 04/18/22 16:00 Nacl 0.9% IV RAFFAELE PRN Hypotension Dextrose 1,000 mls @ 75 mls/hr 04/18/22 20:00 D5w IV DIRECT SHAYY Insulin Human Lispro 0 unit 04/18/22 07:30 04/19/22 11:30 Insulin Lispro 100 Unit/Ml SUB-Q 2 unit ACHS SHAYY Administration Protocol Methylprednisolone Sodium Succinate 60 mg 04/17/22 22:00 04/19/22 06:24 Methylprednisolone Sod Succinate 125 Mg/2 Ml Inj IV 60 mg Q8HR SHAYY Administration Morphine Sulfate 2 mg 04/17/22 17:20 Morphine 2 Mg/1 Ml Inj IV Q4H PRN Pain, Moderate (4-6) Ondansetron HCl 4 mg 04/17/22 17:56 Ondansetron 4 Mg/2 Ml Inj IV Q8H PRN Nausea And Vomiting Ondansetron HCl 4 mg 04/19/22 12:55 Ondansetron 4 Mg/2 Ml Inj IV 04/19/22 12:56 ONCE ONE Oxycodone/Acetaminophen 1 tab 04/17/22 17:56 Oxycodone /Acetaminophen 5-325mg Tab PO Q6H PRN Pain, Moderate (4-6) Sodium Chloride 10 ml 04/17/22 22:00 04/19/22 09:27 Sodium Chloride 0.9% 10 Ml Flush Syringe IV 10 ml BID SHAYY Administration Sodium Chloride 10 ml 04/17/22 17:56 Sodium Chloride 0.9% 10 Ml Flush Syringe IV PRN PRN LINE FLUSH Nutrition/Malnutrition Assess - Dietary Evaluation Nutrition/Malnutrition Findings: Nutrition Notes Start: 04/18/22 12:09 Freq: Status: Active Protocol: Document 04/18/22 12:15 NOÉ (Rec: 04/18/22 12:25 [facility] [id number]) Nutrition Notes Need for Assessment generated from: business control specialist,MST Initial or Follow up Assessment Current Diagnosis CKD (stage V CKD),Diabetes, Hypertension,Respiratory Failure Other Pertinent Diagnosis RLL pneu, volume overload, dementia Current Diet No diet ordered Labs/Tests Reviewed Pertinent Medications Solumedrol Height 5 ft 3 in Weight 59 kg [place] Body Weight (kg) 52.27 BMI 23.0 Weight Status Appropriate Subjective/Other Information RD consulted for TF. Pt also screened for malnutrition risk (unsure of recent wt changes) , chewing difficulty and hx of receiving NTR support. Pt is from a [place] and has a trach collar. Burn Absent Trauma Absent Difficulty In Swallowing Skin Integrity/Comment Sacral pressure ulcer #1 Nutrition Diagnosis Inadequate oral intake Etiology resp failure As Evidenced by Signs and Symptoms pt NPO Is patient on ventilator? No Is Patient Ambulatory and/or Out of Bed No REE-([facility]-confined to bed) [phone] Calculation Used for Recommendations [facility] Additional Notes Pro needs >1.2g/kg: >71g/day Fluid needs 1-1.5L/day Nutrition Intervention Nutrition Support: Nepro at 30ml/hr with 130ml water flush q4h. Kcal 1,296 Protein (gm) 58 Carbohydrates (gm) 116 Fat (gm) 69 Fluid (mL) 523 Fiber (gm) 9 Goal #1 TF tolerance Goal #2 TF to provide at least 75% energy and pro needs Anticipated Discharge Needs: Continue EN support Follow-Up By: 04/21/22 Additional Comments F/U: new TF, MST assessment, COVID-19 test results
[2022-04-19] MEDS ORDERED: ONDANSETRON 4 MG/2 ML INJ IV ONE (13:55)
--- NOTE | 2022-04-19 14:45 | Progress Note ---
Assessment and Plan 1. ESRD: Patient is on maintenance hemodialysis, MWF schedule. Hemodialysis: 04/18. 2. FEN: Hyponatremia, on HD, monitor. UF with HD as tolerated. Replete lytes. Monitor lytes and volume status. 3. Acute on chronic hypoxic respiratory failure, improved: Etiology: Right lower lobe pneumonia. Tracheostomy dependence. Baseline oxygen requirements: Room air (T-piece). Abx per primary. 4. Right lower lobe pneumonia: Chest x-ray findings. Abx. Covid negative. Monitor. 5. Hypertension: Continue to monitor. 6. Insulin dependent type II diabetes mellitus: SSI. 7. Moderate protein caloric malnutrition. 8. Normochromic anemia, POA: Chronic. Likely 2/2 ESRD. Epogen with HD. Subjective: Patient was seen and examined at the bedside. Examination: General appearance: well-developed, appears stated age, no distress, Trached on T-piece HEENT: atraumatic, no icterus Neck: trached Respiratory: ctab, diminished breath sounds Heart: S1S2, no murmur Abdomen: soft, bowel sounds heard, NT, PEG noted Integumentary: no obvious rash Neurologic: lethargic, non-verbal, not following any command Ext: no edema MSK: multiple contractures noted Hemodialysis access: R IJ tunnel catheter Subjective Date of service: 04/19/22 Objective - Vital Signs Vital signs: Vital Signs - 12hr 04/19/22 04/19/22 04/19/22 03:16 04:53 08:25 Temperature 98.6 F Pulse Rate 76 Pulse Rate [ Anterior] Respiratory 18 Rate Respiratory Rate [Anterior] Blood Pressure 169/83 O2 Sat by Pulse 100 99 Oximetry O2 Sat by Pulse 99 Oximetry [ Assessment] 04/19/22 04/19/22 04/19/22 08:26 08:35 10:00 Temperature Pulse Rate Pulse Rate [ 77 Anterior] Respiratory Rate Respiratory 16 Rate [Anterior] Blood Pressure O2 Sat by Pulse 100 Oximetry O2 Sat by Pulse 99 Oximetry [ Assessment] - Lab 04/19/22 05:37 04/20/22 06:40 Most recent lab results Calcium 9.5 mg/dL (8.4-10.2) 04/19/22 02:46 Medications & Allergies - Medications Allergies/Adverse Reactions: Allergies No Known Allergies Allergy (Verified 04/17/22 15:15) Home Medications: Home Medications Medication Instructions Recorded Confirmed Last Taken Type Losartan [Cozaar] 50 mg PO QDAY #30 tablet 04/21/22 Unknown Rx carvediloL [Coreg] 6.25 mg FEEDTUBE BID #60 tablet 04/21/22 Unknown Rx Active Medications: Generic Name Dose Route Start Last Admin Trade Name Freq PRN Reason Stop Dose Admin Acetaminophen 650 mg 04/17/22 17:56 Acetaminophen 325 Mg Tab PO Q4H PRN Pain MILD(1-3)/Fever >100.5/CARRANZA Albuterol/Ipratropium 1 ampul 04/17/22 20:00 04/19/22 08:25 Ipratropium/Albuterol Sulfate 3 Ml Ampul.Neb IH 1 ampul QIDRT SHAYY Administration Azithromycin 500 mg 04/19/22 10:00 04/19/22 09:30 Azithromycin 250 Mg Tab FEEDTUBE 04/21/22 10:01 500 mg QDAY SHAYY Administration Protocol Carvedilol 6.25 mg 04/19/22 10:00 04/19/22 09:30 Carvedilol 6.25 Mg Tab FEEDTUBE 6.25 mg BID SHAYY Administration Epoetin Darwin-epbx 20,000 unit 04/18/22 15:00 04/18/22 15:47 Epoetin Darwin-Epbx 10,000 Unit/1 Ml Vial SUB-Q 20,000 unit RAFFAELE PRN Administration dialysis Famotidine 10 mg 04/18/22 08:30 04/19/22 07:30 Famotidine 10 Mg Tab PO 10 mg BIDAC SHAYY Administration Ceftriaxone Sodium 1 gm in 50 mls @ 100 mls/hr 04/17/22 19:00 04/18/22 18:00 Rocephin/Ns 1 Gm/50 Ml IV 100 mls/hr Q24H SHAYY Administration Protocol Sodium Chloride 100 mls @ 999 mls/hr 04/18/22 16:00 Nacl 0.9% IV RAFFAELE PRN Hypotension Dextrose 1,000 mls @ 75 mls/hr 04/18/22 20:00 D5w IV DIRECT SHAYY Insulin Human Lispro 0 unit 04/18/22 07:30 04/19/22 11:30 Insulin Lispro 100 Unit/Ml SUB-Q 2 unit ACHS SHAYY Administration Protocol Methylprednisolone Sodium Succinate 60 mg 04/17/22 22:00 04/19/22 13:53 Methylprednisolone Sod Succinate 125 Mg/2 Ml Inj IV 60 mg Q8HR SHAYY Administration Morphine Sulfate 2 mg 04/17/22 17:20 Morphine 2 Mg/1 Ml Inj IV Q4H PRN Pain, Moderate (4-6) Ondansetron HCl 4 mg 04/17/22 17:56 Ondansetron 4 Mg/2 Ml Inj IV Q8H PRN Nausea And Vomiting Oxycodone/Acetaminophen 1 tab 04/17/22 17:56 Oxycodone /Acetaminophen 5-325mg Tab PO Q6H PRN Pain, Moderate (4-6) Sodium Chloride 10 ml 04/17/22 22:00 04/19/22 09:27 Sodium Chloride 0.9% 10 Ml Flush Syringe IV 10 ml BID SHAYY Administration Sodium Chloride 10 ml 04/17/22 17:56 Sodium Chloride 0.9% 10 Ml Flush Syringe IV PRN PRN LINE FLUSH
[2022-04-19] MEDS: cefTRIAXone/NS 1 GM/50 ML 1 GM/50 ML BAG IV SCH (22:45)
[2022-04-20] MEDS: methylPREDNISolone Sod Succinate 125 MG/2 ML INJ IV SCH ×3 (05:28→22:17)
[2022-04-20] MEDS: IPRATROPIUM/ALBUTEROL SULFATE 3 ML AMPUL.NEB IH SCH ×4 (07:19→19:21)
[2022-04-20] MEDS: FAMOTIDINE 10 MG TAB PO SCH ×2 (07:30→17:29)
[2022-04-20] MEDS: INSULIN LISPRO 100 UNIT/ML SUB-Q SCH ×4 (07:30→22:00)
[2022-04-20 08:30] LABS: Calcium 9.9 mg/dL (8.4-10.2)
[2022-04-20] MEDS: carvediloL 6.25 MG TAB FEEDTUBE SCH ×2 (10:15→22:17)
[2022-04-20] MEDS: AZITHROMYCIN 250 MG TAB FEEDTUBE SCH (10:15)
--- NOTE | 2022-04-20 11:33 | Progress Note ---
Assessment and Plan 1. ESRD: Patient is on maintenance hemodialysis, MWF schedule. Hemodialysis: 04/18. 2. FEN: Hyponatremia, on HD, monitor. UF with HD as tolerated. Replete lytes. Monitor lytes and volume status. 3. Acute on chronic hypoxic respiratory failure, improved: Etiology: Right lower lobe pneumonia. Tracheostomy dependence. Baseline oxygen requirements: Room air (T-piece). Abx per primary. 4. Right lower lobe pneumonia: Chest x-ray findings. Abx. Covid negative. Monitor. 5. Hypertension: Continue to monitor. 6. Insulin dependent type II diabetes mellitus: SSI. 7. Moderate protein caloric malnutrition. 8. Normochromic anemia, POA: Chronic. Likely 2/2 ESRD. Epogen with HD. Subjective: Patient was seen and examined at the bedside. Examination: General appearance: well-developed, appears stated age, no distress, Trached on T-piece HEENT: atraumatic, no icterus Neck: trached Respiratory: ctab, diminished breath sounds Heart: S1S2, no murmur Abdomen: soft, bowel sounds heard, NT, PEG noted Integumentary: no obvious rash Neurologic: lethargic, non-verbal, not following any command Ext: no edema MSK: multiple contractures noted Hemodialysis access: R IJ tunnel catheter Subjective Date of service: 04/20/22 Objective - Vital Signs Vital signs: Vital Signs - 12hr 04/20/22 04/20/22 04/20/22 02:06 05:24 07:19 Temperature 97.0 F L Pulse Rate 52 L Pulse Rate [ 50 L Anterior] Respiratory 18 Rate Respiratory 18 Rate [Anterior] Blood Pressure 133/89 [Left] O2 Sat by Pulse 99 97 Oximetry O2 Sat by Pulse 98 97 Oximetry [ Assessment] 04/20/22 07:53 Temperature Pulse Rate Pulse Rate [ Anterior] Respiratory Rate Respiratory Rate [Anterior] Blood Pressure [Left] O2 Sat by Pulse 97 Oximetry O2 Sat by Pulse Oximetry [ Assessment] - Lab 04/19/22 05:37 04/20/22 06:40 Most recent lab results Calcium 9.9 mg/dL (8.4-10.2) 04/20/22 06:40 Medications & Allergies - Medications Allergies/Adverse Reactions: Allergies No Known Allergies Allergy (Verified 04/17/22 15:15) Home Medications: Home Medications Medication Instructions Recorded Confirmed Last Taken Type Losartan [Cozaar] 50 mg PO QDAY #30 tablet 04/21/22 Unknown Rx carvediloL [Coreg] 6.25 mg FEEDTUBE BID #60 tablet 04/21/22 Unknown Rx Active Medications: Generic Name Dose Route Start Last Admin Trade Name Freq PRN Reason Stop Dose Admin Acetaminophen 650 mg 04/17/22 17:56 Acetaminophen 325 Mg Tab PO Q4H PRN Pain MILD(1-3)/Fever >100.5/CARRANZA Albuterol/Ipratropium 1 ampul 04/17/22 20:00 04/20/22 07:19 Ipratropium/Albuterol Sulfate 3 Ml Ampul.Neb IH 1 ampul QIDRT SHAYY Administration Azithromycin 500 mg 04/19/22 10:00 04/20/22 10:15 Azithromycin 250 Mg Tab FEEDTUBE 04/21/22 10:01 500 mg QDAY SHAYY Administration Protocol Carvedilol 6.25 mg 04/19/22 10:00 04/20/22 10:15 Carvedilol 6.25 Mg Tab FEEDTUBE 6.25 mg BID SHAYY Administration Epoetin Darwin-epbx 20,000 unit 04/18/22 15:00 04/18/22 15:47 Epoetin Darwin-Epbx 10,000 Unit/1 Ml Vial SUB-Q 20,000 unit RAFFAELE PRN Administration dialysis Famotidine 10 mg 04/18/22 08:30 04/20/22 07:30 Famotidine 10 Mg Tab PO 10 mg BIDAC SHAYY Administration Ceftriaxone Sodium 1 gm in 50 mls @ 100 mls/hr 04/17/22 19:00 04/19/22 22:45 Rocephin/Ns 1 Gm/50 Ml IV 04/21/22 19:29 100 mls/hr Q24H SHAYY Administration Protocol Sodium Chloride 100 mls @ 999 mls/hr 04/18/22 16:00 Nacl 0.9% IV RAFFAELE PRN Hypotension Dextrose 1,000 mls @ 75 mls/hr 04/18/22 20:00 D5w IV DIRECT SHAYY Insulin Human Lispro 0 unit 04/18/22 07:30 04/20/22 07:30 Insulin Lispro 100 Unit/Ml SUB-Q 3 unit ACHS SHAYY Administration Protocol Methylprednisolone Sodium Succinate 60 mg 04/17/22 22:00 04/20/22 05:28 Methylprednisolone Sod Succinate 125 Mg/2 Ml Inj IV 60 mg Q8HR SHAYY Administration Morphine Sulfate 2 mg 04/17/22 17:20 Morphine 2 Mg/1 Ml Inj IV Q4H PRN Pain, Moderate (4-6) Ondansetron HCl 4 mg 04/17/22 17:56 Ondansetron 4 Mg/2 Ml Inj IV Q8H PRN Nausea And Vomiting Oxycodone/Acetaminophen 1 tab 04/17/22 17:56 Oxycodone /Acetaminophen 5-325mg Tab PO Q6H PRN Pain, Moderate (4-6) Sodium Chloride 10 ml 04/17/22 22:00 04/20/22 10:15 Sodium Chloride 0.9% 10 Ml Flush Syringe IV 10 ml BID SHAYY Administration Sodium Chloride 10 ml 04/17/22 17:56 Sodium Chloride 0.9% 10 Ml Flush Syringe IV PRN PRN LINE FLUSH
--- NOTE | 2022-04-20 13:20 | Progress Note ---
Assessment and Plan Assessment and plan: #Acute on chronic hypoxic respiratory failureresolved #Tracheostomy dependence - etiology: Right lower lobe pneumonia - baseline oxygen requirements: Room air (T-piece) - supplemental oxygen: Room air - Continue protocol: continue pulse oximetry, wean oxygen as tolerated, ordered incentive spirometry and educated patient on how to use it and its importance. Continue IV azithromycin 500 mg daily and IV Rocephin 1 g every 24 hours for total of 5 days (completes on 04/21/2022) - continue to monitor #Right lower lobe pneumonia secondary to gram-negative rods or atypical organisms Visualized on chest x-ray Continue IV azithromycin 500 mg daily and Rocephin 1 g every 24 hours Unremarkable coronavirus PCR. Continue to monitor #Hyponatremiaresolved Monitor with repeat BMP as the patient was initially volume overloaded and she is now underwent hemodialysis. #Hypokalemiaresolved Potassium 3.5 Repleting. Monitor with repeat BMP tomorrow. #ESRD on dialysis #Volume overload -Access: Permacath in right upper chest -Outpatient schedule: Thursday -HD center: Unknown -Nephrology consulted; appreciate recs. -Renally dose medications and avoid nephrotoxic drugs. Renal diet. #Hypertension - home medications: Unknown - current medications: Currently normotensive - SBP goal <160 and DBP goal <90 while inpatient - continue to monitor #Insulin dependent type II diabetes mellitus - hemoglobin A1c: Unknown - home regimen: Unknown - current regimen: Moderate SSI - blood glucose goal 140-180 while inpatient - continue to monitor #Moderate protein caloric malnutrition Albumin 2.7 Holding on initiating dietary supplementation #Advanced care planning -Disease education conducted, care plan discussed, diagnoses discussed, prognosis discussed, and patient acknowledges understanding with care plan -Time: +30 min #Discharge planning - Patient is pending 24 hours of room air - Case management has been made aware. - Discharge is tentatively 04/21/2022 Disposition Plan: Pending discharge tomorrow Total Time Spent with Patient (Minutes): 30 minutes History Interval history: No acute events overnight. Hospitalist Physical - Constitutional Vitals: Temp Pulse Resp BP Pulse Ox 97.0 F L 50 L 18 133/89 99 04/20/22 05:24 04/20/22 07:19 04/20/22 07:19 04/20/22 05:24 04/20/22 10:00 General appearance: Present: no acute distress, well-nourished - EENT Eyes: Present: PERRL, EOM intact ENT: hearing intact, clear oral mucosa - Neck Neck: Present: supple, other (Trach collar in place) - Respiratory Respiratory effort: normal Respiratory: bilateral: diminished (On room air) - Cardiovascular Rhythm: regular Heart Sounds: Present: S1 & S2 - Extremities Extremities: no ischemia, pulses intact, pulses symmetrical, No edema, normal te mperature, normal color, abnormal (Bilateral lower extremity contracture) Peripheral Pulses: within normal limits - Abdominal General gastrointestinal: soft, non-tender, non-distended, normal bowel sounds, other (PEG tube in place) - Integumentary Integumentary: Present: clear, warm, dry - Psychiatric Psychiatric: appropriate mood/affect - Neurologic Neurologic: CNII-XII intact - Allied Health Allied health notes reviewed: nursing HEART Score - HEART Score Age: > 65 Risk factors: > 3 risk factors or hx of atherosclerotic disease Troponin: 1-3x normal limit - Critical Actions Critical Actions: 4-6 pts:12-16.6% risk of adverse cardiac event. Should be admitted Results - Labs CBC & Chem 7: 04/19/22 05:37 04/20/22 06:40 Labs: Laboratory Last Values WBC 11.3 K/mm3 (4.5-11.0) H 04/19/22 05:37 RBC 2.56 M/mm3 (3.65-5.03) L 04/19/22 05:37 Hgb 8.3 gm/dl (10.1-14.3) L 04/19/22 05:37 Hct 24.5 % (30.3-42.9) L 04/19/22 05:37 MCV 96 fl (79-97) 04/19/22 05:37 MCH 32 pg (28-32) 04/19/22 05:37 MCHC 34 % (30-34) 04/19/22 05:37 RDW 15.0 % (13.2-15.2) 04/19/22 05:37 Plt Count 203 K/mm3 (140-440) 04/19/22 05:37 Lymph % (Auto) 5.1 % (13.4-35.0) L 04/19/22 00:09 Henry % (Auto) 5.4 % (0.0-7.3) 04/19/22 00:09 Eos % (Auto) 0.2 % (0.0-4.3) 04/19/22 00:09 Baso % (Auto) 0.3 % (0.0-1.8) 04/19/22 00:09 Lymph # (Auto) 0.4 K/mm3 (1.2-5.4) L 04/19/22 00:09 Henry # (Auto) 0.4 K/mm3 (0.0-0.8) 04/19/22 00:09 Eos # (Auto) 0.0 K/mm3 (0.0-0.4) 04/19/22 00:09 Baso # (Auto) 0.0 K/mm3 (0.0-0.1) 04/19/22 00:09 Add Manual Diff Complete 04/19/22 05:37 Total Counted 100 04/19/22 05:37 Seg Neutrophils % 89.0 % (40.0-70.0) H 04/19/22 00:09 Seg Neuts % (Manual) 87.0 % (40.0-70.0) H 04/19/22 05:37 Band Neutrophils % 0 % 04/19/22 05:37 Lymphocytes % (Manual) 11.0 % (13.4-35.0) L 04/19/22 05:37 Reactive Lymphs % (Man) 0 % 04/19/22 05:37 Monocytes % (Manual) 2.0 % (0.0-7.3) 04/19/22 05:37 Eosinophils % (Manual) 0 % (0.0-4.3) 04/19/22 05:37 Basophils % (Manual) 0 % (0.0-1.8) 04/19/22 05:37 Metamyelocytes % 0 % 04/19/22 05:37 Myelocytes % 0 % 04/19/22 05:37 Promyelocytes % 0 % 04/19/22 05:37 Blast Cells % 0 % 04/19/22 05:37 Nucleated RBC % Not Reportable 04/19/22 05:37 Seg Neutrophils # 6.5 K/mm3 (1.8-7.7) 04/19/22 00:09 Seg Neutrophils # Man 0.0 K/mm3 (1.8-7.7) L 04/19/22 05:37 Band Neutrophils # 0.0 K/mm3 04/19/22 05:37 Lymphocytes # (Manual) 0.0 K/mm3 (1.2-5.4) L 04/19/22 05:37 Abs React Lymphs (Man) 0.0 K/mm3 04/19/22 05:37 Monocytes # (Manual) 0.0 K/mm3 (0.0-0.8) 04/19/22 05:37 Eosinophils # (Manual) 0.0 K/mm3 (0.0-0.4) 04/19/22 05:37 Basophils # (Manual) 0.0 K/mm3 (0.0-0.1) 04/19/22 05:37 Metamyelocytes # 0.0 K/mm3 04/19/22 05:37 Myelocytes # 0.0 K/mm3 04/19/22 05:37 Promyelocytes # 0.0 K/mm3 04/19/22 05:37 Blast Cells # 0.0 K/mm3 04/19/22 05:37 WBC Morphology Not Reportable 04/19/22 05:37 Hypersegmented Neuts Not Reportable 04/19/22 05:37 Hyposegmented Neuts Not Reportable 04/19/22 05:37 Hypogranular Neuts Not Reportable 04/19/22 05:37 Smudge Cells Not Reportable 04/19/22 05:37 Toxic Granulation Not Reportable 04/19/22 05:37 Toxic Vacuolation Not Reportable 04/19/22 05:37 Dohle Bodies Not Reportable 04/19/22 05:37 Pelger-Huet Anomaly Not Reportable 04/19/22 05:37 Arianne Rods Not Reportable 04/19/22 05:37 Platelet Estimate Consistent w auto 04/19/22 05:37 Clumped Platelets Not Reportable 04/19/22 05:37 Plt Clumps, EDTA Not Reportable 04/19/22 05:37 Large Platelets Not Reportable 04/19/22 05:37 Giant Platelets Not Reportable 04/19/22 05:37 Platelet Satelliting Not Reportable 04/19/22 05:37 Plt Morphology Comment Not Reportable 04/19/22 05:37 RBC Morphology Normal 04/19/22 05:37 Dimorphic RBCs Not Reportable 04/19/22 05:37 Polychromasia Not Reportable 04/19/22 05:37 Hypochromasia Not Reportable 04/19/22 05:37 Poikilocytosis Not Reportable 04/19/22 05:37 Anisocytosis Not Reportable 04/19/22 05:37 Microcytosis Not Reportable 04/19/22 05:37 Macrocytosis Not Reportable 04/19/22 05:37 Spherocytes Not Reportable 04/19/22 05:37 Pappenheimer Bodies Not Reportable 04/19/22 05:37 Sickle Cells Not Reportable 04/19/22 05:37 Target Cells Not Reportable 04/19/22 05:37 Tear Drop Cells Not Reportable 04/19/22 05:37 Ovalocytes Not Reportable 04/19/22 05:37 Helmet Cells Not Reportable 04/19/22 05:37 Husain-Qulin Bodies Not Reportable 04/19/22 05:37 [place] Rings Not Reportable 04/19/22 05:37 [place] Cells Not Reportable 04/19/22 05:37 Bite Cells Not Reportable 04/19/22 05:37 Crenated Cell Not Reportable 04/19/22 05:37 Elliptocytes Not Reportable 04/19/22 05:37 Acanthocytes (Spur) Not Reportable 04/19/22 05:37 Rouleaux Not Reportable 04/19/22 05:37 Hemoglobin C Crystals Not Reportable 04/19/22 05:37 Schistocytes Not Reportable 04/19/22 05:37 Malaria parasites Not Reportable 04/19/22 05:37 Kuldeep Bodies Not Reportable 04/19/22 05:37 Hem Pathologist Commnt No 04/19/22 05:37 Sodium 132 mmol/L (137-145) L 04/20/22 06:40 Potassium 4.8 mmol/L (3.6-5.0) D 04/20/22 06:40 Chloride 90.1 mmol/L (98-107) L 04/20/22 06:40 Carbon Dioxide 30 mmol/L (22-30) 04/20/22 06:40 Anion Gap 17 mmol/L 04/20/22 06:40 BUN 43 mg/dL (7-17) H 04/20/22 06:40 Creatinine 2.9 mg/dL (0.6-1.2) H D 04/20/22 06:40 Estimated GFR 19 ml/min 04/20/22 06:40 BUN/Creatinine Ratio 15 % 04/20/22 06:40 Glucose 204 mg/dL (65-100) H 04/20/22 06:40 POC Glucose 167 mg/dL (70-105) H 04/19/22 21:37 Lactic Acid 1.00 mmol/L (0.7-2.0) 04/19/22 00:09 Calcium 9.9 mg/dL (8.4-10.2) 04/20/22 06:40 Total Bilirubin 0.30 mg/dL (0.1-1.2) 04/18/22 13:46 AST 13 units/L (5-40) 04/18/22 13:46 ALT < 5 units/L (7-56) L 04/18/22 13:46 Alkaline Phosphatase 125 units/L (35-129) 04/18/22 13:46 Total Protein 5.5 g/dL (6.3-8.2) L 04/18/22 13:46 Albumin 2.7 g/dL (3.9-5) L 04/18/22 13:46 Albumin/Globulin Ratio 1.0 % 04/18/22 13:46 Coronavirus (PCR) Negative (Negative) 04/17/22 16:20 Hepatitis A IgM Ab Non-reactive (NonReactive) 04/18/22 13:46 Hep Bs Antigen Non-reactive (Negative) 04/18/22 13:46 Hep B Core IgM Ab Non-reactive (NonReactive) 04/18/22 13:46 Hepatitis C Antibody Non-reactive (NonReactive) 04/18/22 13:46 Microbiology: Microbiology 04/17/22 16:08 Peripheral/Venous Blood Culture - Preliminary NO GROWTH AFTER 48 HOURS Bonilla/IV: Voiding Method Incontinent Active Medications - Current Medications Current Medications: Generic Name Dose Route Start Last Admin Trade Name Freq PRN Reason Stop Dose Admin Acetaminophen 650 mg 04/17/22 17:56 Acetaminophen 325 Mg Tab PO Q4H PRN Pain MILD(1-3)/Fever >100.5/CARRANZA Albuterol/Ipratropium 1 ampul 04/17/22 20:00 04/20/22 07:19 Ipratropium/Albuterol Sulfate 3 Ml Ampul.Neb IH 1 ampul QIDRT SHAYY Administration Azithromycin 500 mg 04/19/22 10:00 04/20/22 10:15 Azithromycin 250 Mg Tab FEEDTUBE 04/21/22 10:01 500 mg QDAY SHAYY Administration Protocol Carvedilol 6.25 mg 04/19/22 10:00 04/20/22 10:15 Carvedilol 6.25 Mg Tab FEEDTUBE 6.25 mg BID SHAYY Administration Epoetin Darwin-epbx 20,000 unit 04/18/22 15:00 04/18/22 15:47 Epoetin Darwin-Epbx 10,000 Unit/1 Ml Vial SUB-Q 20,000 unit RAFFAELE PRN Administration dialysis Famotidine 10 mg 04/18/22 08:30 04/20/22 07:30 Famotidine 10 Mg Tab PO 10 mg BIDAC SHAYY Administration Ceftriaxone Sodium 1 gm in 50 mls @ 100 mls/hr 04/17/22 19:00 04/19/22 22:45 Rocephin/Ns 1 Gm/50 Ml IV 04/21/22 19:29 100 mls/hr Q24H SHAYY Administration Protocol Sodium Chloride 100 mls @ 999 mls/hr 04/18/22 16:00 Nacl 0.9% IV RAFFAELE PRN Hypotension Dextrose 1,000 mls @ 75 mls/hr 04/18/22 20:00 D5w IV DIRECT SHAYY Insulin Human Lispro 0 unit 04/18/22 07:30 04/20/22 11:30 Insulin Lispro 100 Unit/Ml SUB-Q 2 unit ACHS SHAYY Administration Protocol Methylprednisolone Sodium Succinate 60 mg 04/17/22 22:00 04/20/22 05:28 Methylprednisolone Sod Succinate 125 Mg/2 Ml Inj IV 60 mg Q8HR SHAYY Administration Morphine Sulfate 2 mg 04/17/22 17:20 Morphine 2 Mg/1 Ml Inj IV Q4H PRN Pain, Moderate (4-6) Ondansetron HCl 4 mg 04/17/22 17:56 Ondansetron 4 Mg/2 Ml Inj IV Q8H PRN Nausea And Vomiting Oxycodone/Acetaminophen 1 tab 04/17/22 17:56 Oxycodone /Acetaminophen 5-325mg Tab PO Q6H PRN Pain, Moderate (4-6) Sodium Chloride 10 ml 04/17/22 22:00 04/20/22 10:15 Sodium Chloride 0.9% 10 Ml Flush Syringe IV 10 ml BID SHAYY Administration Sodium Chloride 10 ml 04/17/22 17:56 Sodium Chloride 0.9% 10 Ml Flush Syringe IV PRN PRN LINE FLUSH Nutrition/Malnutrition Assess - Dietary Evaluation Nutrition/Malnutrition Findings: Nutrition Notes Start: 04/18/22 12:0 9 Freq: Status: Active Protocol: Document 04/18/22 12:15 NOÉ (Rec: 04/18/22 12:25 [facility] [id number] Nutrition Notes Need for Assessment generated from: test preparation tutor,MST Initial or Follow up Assessment Current Diagnosis CKD (stage V CKD),Diabetes, Hypertension,Respiratory Failure Other Pertinent Diagnosis RLL pneu, volume overload, dementia Current Diet No diet ordered Labs/Tests Reviewed Pertinent Medications Solumedrol Height 5 ft 3 in Weight 59 kg [place] Body Weight (kg) 52.27 BMI 23.0 Weight Status Appropriate Subjective/Other Information RD consulted for TF. Pt also screened for malnutrition risk (unsure of recent wt changes) , chewing difficulty and hx of receiving NTR support. Pt is from a [place] and has a trach collar. Burn Absent Trauma Absent Difficulty In Swallowing Skin Integrity/Comment Sacral pressure ulcer #1 Nutrition Diagnosis Inadequate oral intake Etiology resp failure As Evidenced by Signs and Symptoms pt NPO Is patient on ventilator? No Is Patient Ambulatory and/or Out of Bed No REE-([facility]-confined to bed) [phone] Calculation Used for Recommendations [facility] Additional Notes Pro needs >1.2g/kg: >71g/day Fluid needs 1-1.5L/day Nutrition Intervention Nutrition Support: Nepro at 30ml/hr with 130ml water flush q4h. Kcal 1,296 Protein (gm) 58 Carbohydrates (gm) 116 Fat (gm) 69 Fluid (mL) 523 Fiber (gm) 9 Goal #1 TF tolerance Goal #2 TF to provide at least 75% energy and pro needs Anticipated Discharge Needs: Continue EN support Follow-Up By: 04/21/22 Additional Comments F/U: new TF, MST assessment, COVID-19 test results
[2022-04-20] MEDS: cefTRIAXone/NS 1 GM/50 ML 1 GM/50 ML BAG IV SCH (19:30)
[2022-04-21] MEDS: methylPREDNISolone Sod Succinate 125 MG/2 ML INJ IV SCH ×2 (05:27→15:39)
[2022-04-21] MEDS: IPRATROPIUM/ALBUTEROL SULFATE 3 ML AMPUL.NEB IH SCH ×2 (08:22→15:06)
[2022-04-21] MEDS: AZITHROMYCIN 250 MG TAB FEEDTUBE SCH (09:55)
[2022-04-21] MEDS: FAMOTIDINE 10 MG TAB PO SCH ×2 (09:55→16:07)
[2022-04-21] MEDS: INSULIN LISPRO 100 UNIT/ML SUB-Q SCH ×3 (09:55→16:07)
[2022-04-21] MEDS ORDERED: LOSARTAN 50 MG TAB PO SCH (10:00)
[2022-04-21] MEDS ORDERED: amLODIPine 10 MG TAB PO SCH (10:00)
[2022-04-21] MEDS ORDERED: cefTRIAXone/NS 1 GM/50 ML 1 GM/50 ML BAG IV SCH (12:00)
--- NOTE | 2022-04-21 12:08 | Discharge Summary ---
Providers - Providers Date of Admission: 04/17/22 18:01 Date of discharge: 04/21/22 Attending physician: POLY LEWIS MD 04/17/22 16:50 Consult to Case Management [CONS] Stat Services Needed at Discharge: Pressure Sealer [employer] Tester Notified:: n Additional Physician Instructions: Homelessness 04/18/22 07:00 Consult to Physician [CONS] Routine Comment: Consulting Provider: ANSELMO TYLER Physician Instructions: Reason For Exam: ESRD 04/18/22 11:44 Consult to Dietitian/Nutrition [CONS] Routine Physician Instructions: Renal diet Reason For Exam: Reason for Consult: Write/Manage Tube Feeding Primary care physician: JEN GARRISON MD Hospitalization Reason for admission: Acute on chronic hypoxic respiratory failure Condition: Fair Pertinent studies: Reviewed. Procedures: None. Disposition: 30 STILL A PATIENT Final Discharge Diagnosis (Prints w/discharge instructions): Acute on chronic hypoxic respiratory failure, tracheostomy dependence, right lower lobe pneumonia secondary to gram-negative rods or atypical organisms, hyponatremia, hypokalemia, ESRD on hemodialysis, volume overload, hypertension, insulin- dependent type 2 diabetes mellitus, moderate protein caloric malnutrition Time spent for discharge: 45 min Core Measure Documentation - Palliative Care Palliative Care/ Comfort Measures: Not Applicable - Core Measures Any of the following diagnoses?: history only Exam - Constitutional Vitals: Temp Pulse Resp BP Pulse Ox 97.5 F L 59 L 16 150/60 91 04/21/22 04:12 04/21/22 09:34 04/21/22 04:12 04/21/22 09:34 04/21/22 09:34 General appearance: Present: no acute distress, well-nourished - EENT Eyes: Present: PERRL, EOM intact ENT: hearing intact, clear oral mucosa - Neck Neck: Present: supple, normal ROM, other (Tracheostomy in place) - Respiratory Respiratory effort: normal Respiratory: bilateral: CTA - Cardiovascular Rhythm: regular Heart Sounds: Present: S1 & S2 - Extremities Extremities: no ischemia, pulses intact, pulses symmetrical, No edema, normal temperature, normal color Peripheral Pulses: within normal limits - Abdominal General gastrointestinal: Present: soft, non-tender, non-distended, normal bowel sounds, other (contractures of bilateral lower extremities) Female genitourinary: Present: deferred - Rectal Rectal Exam: deferred - Integumentary Integumentary: Present: clear, warm, dry - Musculoskeletal Musculoskeletal: generalized weakness - Psychiatric Psychiatric: appropriate mood/affect, cooperative - Neurologic Neurologic: CNII-XII intact, moves all extremities - Allied Health Allied health notes reviewed: nursing Plan Activity: no restrictions Diet: other (Tube feeds) Care Plan Goals: Patient is medically clear for discharge. Follow up with: JEN GARRISON MD [Primary Care Provider] - 7 Days Prescriptions: carvediloL [Coreg] 6.25 mg FEEDTUBE BID #60 tablet Losartan [Cozaar] 50 mg PO QDAY #30 tablet
[2022-04-21] MEDS: carvediloL 6.25 MG TAB FEEDTUBE SCH (13:42)
[2022-04-21] MEDS: EPOETIN ALFA-EPBX 10,000 UNIT/1 ML VIAL SUB-Q PRN (16:00)
--- NOTE | 2022-04-21 17:04 | Progress Note ---
Assessment and Plan 1. ESRD: Patient is on maintenance hemodialysis, MWF schedule. Hemodialysis: 04/18, 04/21. 2. FEN: Hyponatremia, on HD, monitor. UF with HD as tolerated. Replete lytes. Monitor lytes and volume status. 3. Acute on chronic hypoxic respiratory failure, improved: Etiology: Right lower lobe pneumonia. Tracheostomy dependence. Baseline oxygen requirements: Room air (T-piece). Abx per primary. 4. Right lower lobe pneumonia: Chest x-ray findings. Abx. Covid negative. Monitor. 5. Hypertension: Continue to monitor. 6. Insulin dependent type II diabetes mellitus: SSI. 7. Moderate protein caloric malnutrition. 8. Normochromic anemia, POA: Chronic. Likely 2/2 ESRD. Epogen with HD. Subjective: Patient was seen and examined at the bedside. Examination: General appearance: well-developed, appears stated age, no distress, Trached on T-piece HEENT: atraumatic, no icterus Neck: trached Respiratory: ctab, diminished breath sounds Heart: S1S2, no murmur Abdomen: soft, bowel sounds heard, NT, PEG noted Integumentary: no obvious rash Neurologic: lethargic, non-verbal, not following any command Ext: no edema MSK: multiple contractures noted Hemodialysis access: R IJ tunnel catheter Subjective Date of service: 04/21/22 Objective - Vital Signs Vital signs: Vital Signs - 12hr 04/21/22 04/21/22 04/21/22 05:20 08:11 08:22 Temperature Pulse Rate Pulse Rate [ 62 Anterior] Respiratory Rate Respiratory 18 Rate [Anterior] Blood Pressure O2 Sat by Pulse 100 99 99 Oximetry O2 Sat by Pulse Oximetry [ Anterior] 04/21/22 04/21/22 04/21/22 09:34 13:50 14:00 Temperature 98.7 F Pulse Rate 59 L 53 L 51 L Pulse Rate [ Anterior] Respiratory 20 Rate Respiratory Rate [Anterior] Blood Pressure 150/60 131/53 162/61 O2 Sat by Pulse 91 Oximetry O2 Sat by Pulse 98 Oximetry [ Anterior] 04/21/22 04/21/22 04/21/22 14:15 14:30 14:45 Temperature Pulse Rate 54 L 55 L 53 L Pulse Rate [ Anterior] Respiratory Rate Respiratory Rate [Anterior] Blood Pressure 155/62 146/65 136/60 O2 Sat by Pulse Oximetry O2 Sat by Pulse Oximetry [ Anterior] 04/21/22 04/21/22 04/21/22 15:00 15:15 15:30 Temperature Pulse Rate 54 L 57 L 65 Pulse Rate [ Anterior] Respiratory Rate Respiratory Rate [Anterior] Blood Pressure 124/63 142/65 129/65 O2 Sat by Pulse Oximetry O2 Sat by Pulse Oximetry [ Anterior] 04/21/22 04/21/22 04/21/22 15:45 16:00 16:15 Temperature Pulse Rate 54 L 54 L 56 L Pulse Rate [ Anterior] Respiratory Rate Respiratory Rate [Anterior] Blood Pressure 150/63 145/59 128/55 O2 Sat by Pulse Oximetry O2 Sat by Pulse Oximetry [ Anterior] - Lab 04/19/22 05:37 04/20/22 06:40 Most recent lab results Calcium 9.9 mg/dL (8.4-10.2) 04/20/22 06:40 Medications & Allergies - Medications Allergies/Adverse Reactions: Allergies No Known Allergies Allergy (Verified 04/17/22 15:15) Home Medications: Home Medications Medication Instructions Recorded Confirmed Last Taken Type Losartan [Cozaar] 50 mg PO QDAY #30 tablet 04/21/22 Unknown Rx carvediloL [Coreg] 6.25 mg FEEDTUBE BID #60 tablet 04/21/22 Unknown Rx Active Medications: Generic Name Dose Route Start Last Admin Trade Name Freq PRN Reason Stop Dose Admin Acetaminophen 650 mg 04/17/22 17:56 Acetaminophen 325 Mg Tab PO Q4H PRN Pain MILD(1-3)/Fever >100.5/CARRANZA Albuterol/Ipratropium 1 ampul 04/21/22 08:00 04/21/22 15:06 Ipratropium/Albuterol Sulfate 3 Ml Ampul.Neb IH Not Given TIDRT SHAYY Amlodipine Besylate 10 mg 04/21/22 10:00 04/21/22 13:42 Amlodipine 10 Mg Tab PO Not Given QDAY SHAYY Carvedilol 6.25 mg 04/19/22 10:00 04/21/22 13:42 Carvedilol 6.25 Mg Tab FEEDTUBE Not Given BID SHAYY Epoetin Darwin-epbx 20,000 unit 04/18/22 15:00 04/18/22 15:47 Epoetin Darwin-Epbx 10,000 Unit/1 Ml Vial SUB-Q 20,000 unit RAFFAELE PRN Administration dialysis Famotidine 10 mg 04/18/22 08:30 04/21/22 16:07 Famotidine 10 Mg Tab PO Not Given BIDAC SHAYY Sodium Chloride 100 mls @ 999 mls/hr 04/18/22 16:00 Nacl 0.9% IV RAFFAELE PRN Hypotension Dextrose 1,000 mls @ 75 mls/hr 04/18/22 20:00 D5w IV DIRECT [facility] Insulin Human Lispro 0 unit 04/18/22 07:30 04/21/22 16:07 Insulin Lispro 100 Unit/Ml SUB-Q Not Given ACHS [facility] Protocol Losartan Potassium 50 mg 04/21/22 10:00 04/21/22 13:42 Losartan 50 Mg Tab PO Not Given QDAY [facility] Methylprednisolone Sodium Succinate 60 mg 04/17/22 22:00 04/21/22 15:39 Methylprednisolone Sod Succinate 125 Mg/2 Ml Inj IV Not Given Q8HR [facility] Morphine Sulfate 2 mg 04/17/22 17:20 Morphine 2 Mg/1 Ml Inj IV Q4H PRN Pain, Moderate (4-6) Ondansetron HCl 4 mg 04/17/22 17:56 Ondansetron 4 Mg/2 Ml Inj IV Q8H PRN Nausea And Vomiting Oxycodone/Acetaminophen 1 tab 04/17/22 17:56 04/21/22 12:19 Oxycodone /Acetaminophen 5-325mg Tab PO 1 tab Q6H PRN Administration Pain, Moderate (4-6) Sodium Chloride 10 ml 04/17/22 22:00 04/21/22 09:55 Sodium Chloride 0.9% 10 Ml Flush Syringe IV 10 ml BID SHAYY Administration Sodium Chloride 10 ml 04/17/22 17:56 Sodium Chloride 0.9% 10 Ml Flush Syringe IV PRN PRN LINE FLUSH
[2022-04-21 17:29] VITALS: BP 156/55
== END 2022-04-21 18:25 | DRG 177 ==
LOC: ED 14:21 → 3A 18:01
PROVIDERS: ADMIT Internal Medicine; ATTEND Student in an Organized Health Care Education/Training Program
PROC: 5A1D70Z Performance of Urinary Filtration, Intermittent, Less than 6 Hours Per Day (ICD-10-PCS; principal; 2022-04-18)
PROC: 5A1D70Z Performance of Urinary Filtration, Intermittent, Less than 6 Hours Per Day (ICD-10-PCS; 2022-04-21)
DX: J15.6 Pneumonia due to other Gram-negative bacteria (principal); J96.21 Acute and chronic respiratory failure with hypoxia; N18.6 End stage renal disease; E87.1 Hypo-osmolality and hyponatremia; I12.0 Hypertensive chronic kidney disease with stage 5 chronic kidney disease or end stage renal disease; E44.0 Moderate protein-calorie malnutrition; Z20.822 Contact with and (suspected) exposure to COVID-19; E11.22 Type 2 diabetes mellitus with diabetic chronic kidney disease; Z99.2 Dependence on renal dialysis; Z93.0 Tracheostomy status; E87.6 Hypokalemia; E87.70 Fluid overload, unspecified; F03.90 Unspecified dementia, unspecified severity, without behavioral disturbance, psychotic disturbance, mood disturbance, and anxiety; Z86.73 Personal history of transient ischemic attack (TIA), and cerebral infarction without residual deficits; D64.9 Anemia, unspecified; Z68.23 Body mass index [BMI] 23.0-23.9, adult; Z79.4 Long term (current) use of insulin
CPT/HCPCS: 36415; 71045; 80048; 80053; 80074; 82140; 82962; 85007; 85025; 87040; 94640; 94760; 96365; 96375; 99285; G0378; J3490; Q9967; J0456; J0692; J0696; J0885; J1815; J2405; J2930; J3370; J3480; U0003